=== PATIENT | female | born 1970 | race African-American/Black ===

== ENCOUNTER 2018-05-01 16:51 | Emergency (ER) | payer OTHER ==
[~2018-05-01] VITALS: Ht 175.3 cm; Wt 93.0 kg
[~2018-05-01 16:51] MED LIST: METO25TA3; MULT1CAP34; TAP; TRIA1CAP35
[2018-05-01 22:49] VITALS: BP 154/75
== END 2018-05-01 22:56 | disposition home or self-care (01) ==
LOC: ER 16:51
DX: S09.8XXA Other specified injuries of head, initial encounter (principal); I10 Essential (primary) hypertension; E03.9 Hypothyroidism, unspecified; E05.00 Thyrotoxicosis with diffuse goiter without thyrotoxic crisis or storm; Z88.3 Allergy status to other anti-infective agents; Z91.013 Allergy to seafood; W01.0XXA Fall on same level from slipping, tripping and stumbling without subsequent striking against object, initial encounter; Y93.89 Activity, other specified; Y92.018 Other place in single-family (private) house as the place of occurrence of the external cause
CPT/HCPCS: 99283; Z7610